=== PATIENT | male | born 1970 | race Caucasian/White ===

== ENCOUNTER → 2025-11-11 | Outpatient (CLI) | payer MEDICAID, SELFPAY ==
--- NOTE | 2025-11-11 11:00 | XR_ITS ---
Examination: CT lung low dose screening, without contrast. 2-D sagittal reconstructions. 2-D coronal reconstructions. 3-D reconstructions. Date and time of exam: November 11, 2025, 1050 hours INDICATIONS: Nicotine dependence, smoking history 40 years, shortness of breath 1 year CTDI: vol (mGy): 13.7 DLP: (mGycm): 576 Technique: Multiple 1.25 mm axial sections of the lung low dose screening without contrast have been obtained. 2-D sagittal and coronal reconstructions have been obtained. 3-D reconstructions have been obtained. Low dose protocols were performed. One or more of the following dose reduction techniques were used; automated exposure control, adjustment of the mA and/or KV according to patient size, use of iterative reconstruction technique. Findings: Mild aneurysmal dilatation ascending thoracic aorta, AP dimension 4.3 cm Main pulmonary artery segment 3.5 cm No mediastinal lymphadenopathy 4 mm pulmonary nodule right upper lobe image 174 4 mm pulmonary nodule right midlung image 195 3 mm pulmonary nodule right lower lobe image 202 18 mm pulmonary nodule right lower lobe with central calcification image 255 Atelectasis in the lower lung zones No visualized liver or splenic lesion Gallstones Gallbladder wall appears mildly thickened No pancreatic or adrenal mass No renal or ureteral calculi Mild thoracic spondylosis IMPRESSION: Mild aneurysmal dilatation ascending thoracic aorta Pulmonary artery hypertension 18 mm granuloma right lower lobe Noncalcified pulmonary nodules as above, with the study as baseline recommend 6-month follow-up CT chest without contrast Cholelithiasis, recommend gallbladder sonography follow-up to exclude cholecystitis
== END | disposition home or self-care (01) ==
PROVIDERS: PCP Nurse Practitioner Family; Referring Provider Nurse Practitioner Family; Visit Provider Nurse Practitioner Family
DX: I71.21 Aneurysm of the ascending aorta, without rupture (principal); I27.21 Secondary pulmonary arterial hypertension; J84.10 Pulmonary fibrosis, unspecified; R91.8 Other nonspecific abnormal finding of lung field; K80.20 Calculus of gallbladder without cholecystitis without obstruction; F17.200 Nicotine dependence, unspecified, uncomplicated
CPT/HCPCS: 71271